=== PATIENT | male | born 1995 | race African-American/Black ===

== ENCOUNTER 2021-01-23 19:12 | Emergency (ER) | payer SELFPAY | END 2021-01-23 19:46 | disposition home or self-care (01) | LOC: CSHERS 19:12 | DX: J02.9 Acute pharyngitis, unspecified (principal) | CPT/HCPCS: 87081; 87430; 99283 ==

== ENCOUNTER 2022-04-21 21:40 | Emergency (ER) | payer SELFPAY | END 2022-04-21 23:23 | disposition home or self-care (01) | LOC: CSHERS 21:40 | DX: M25.562 Pain in left knee (principal) ==